=== PATIENT | female | born 1960 | race African-American/Black ===

== ENCOUNTER 2019-02-17 03:45 | Inpatient (IN) | payer SELFPAY ==
[~2019-02-17] VITALS: Ht 165.1 cm; Wt 84.5 kg
[2019-02-17] VITALS (8 sets, daily range): BP systolic 122–141; BP diastolic 55–81
[2019-02-17] MEDS ORDERED: ONDANSETRON HCL 4MG/2ML INJ IV STA (05:48)
[2019-02-17] MEDS ORDERED: MORPHINE SULFATE 4 MG/ML CPJ (NOT FOR IM USE) IV STA (05:48)
[2019-02-17] MEDS ORDERED: SODIUM CHLORIDE 0.9% 1000ML BAG (SEPSIS BOLUS) IV ONE (06:00)
[2019-02-17] MEDS ORDERED: CLINDAMYCIN 600 MG in DEXTROSE 5% WATER 50 ML IV ONE (06:00)
[2019-02-17] MEDS ORDERED: VANCOMYCIN 1 G PREMIX 200 ML IV ONE (06:00)
[2019-02-17] MEDS ORDERED: PIPERACILLIN/TAZ 3.375G PREMIX 50 ML IV ONE (06:00)
[2019-02-17 06:23] LABS: BASOPHILS % 0.7 % (0.0-2.0); EOSINOPHILS % 0.2 % (0.0-5.0); HEMOGLOBIN. 12.3 g/dL (12.0-16.0); LYMPHOCYTES % 16.6 % (20.0-50.0); MEAN CORPUSCULAR HEMOGLOBIN 29.5 pg (28.0-32.0); MEAN CORPUSCULAR VOLUME 86.7 fL (81.0-99.0); MEAN PLATELET VOLUME 9.5 fl (7.4-10.4); MONOCYTES % 5.4 % (2.0-8.0); NEUTROPHILS % 77.1 % (40.0-76.0); PLATELET 399 x1000/uL (130-400); RED BLOOD CELL COUNT 4.15 mill/uL (4.2-5.4); RED CELL DISTRIBUTION WIDTH 12.2 % (11.6-14.6)
[2019-02-17 06:24] LABS: CHLORIDE 99 mEq/L (98-107)
[2019-02-17 06:26] LABS: PROTHROMBIN TIME 10.7 sec (9.6-11.0)
[2019-02-17 06:30] LABS: C REACTIVE PROTEIN QUANT 9.2 mg/L (0.0-3.0)
[2019-02-17] MEDS ORDERED: PIPERACILLIN/TAZOBACTAM 3.375 G in DEXT 5% WATER 100 ML IV ONE (06:30)
[2019-02-17] MEDS ORDERED: CLONIDINE 0.1MG TABLET PO PRN (06:45)
[2019-02-17] MEDS ORDERED: ONDANSETRON HCL 4MG/2ML INJ IV PRN (06:45)
[2019-02-17] MEDS ORDERED: DOCUSATE SODIUM 100MG CAPSULE PO PRN (06:45)
[2019-02-17] MEDS ORDERED: ACETAMINOPHEN 325MG TABLET PO PRN (06:45)
[2019-02-17] MEDS: HYDROCODONE/ACETAMINOPHEN 5/325MG TABLET PO PRN ×4 (07:20→20:18)
[2019-02-17] MEDS: SODIUM CHLORIDE 0.9% 1,000 ML IV SCH (07:20)
[2019-02-17] MEDS ORDERED: DEXTROSE 50% WATER 50ML SYRINGE IV PRN (08:30)
[2019-02-17] MEDS: AMLODIPINE 10MG TABLET PO SCH (09:00)
[2019-02-17] MEDS: BLOOD SUGAR DIAGNOSTIC STRIP TEST SCH ×4 (09:00→20:18)
[2019-02-17] MEDS: INSULIN LISPRO 100 UNITS/ML SUBCUT SCH ×4 (10:26→20:28)
[2019-02-17] MEDS ORDERED: PIPERACILLIN/TAZ 3.375G PREMIX 50 ML IV SCH (13:00)
[2019-02-17] MEDS: PIPERACILLIN/TAZOBACTAM 3.375 G in DEXT 5% WATER 100 ML IV SCH ×2 (14:55→18:26)
[2019-02-17] MEDS: NICOTINE 21MG PATCH TD SCH (16:42)
[2019-02-17] MEDS: ENOXAPARIN 40MG/0.4ML SYR SUBCUT SCH (21:00)
[2019-02-18] VITALS (12 sets, daily range): BP systolic 111–147; BP diastolic 46–73
[2019-02-18] MEDS: HYDROCODONE/ACETAMINOPHEN 5/325MG TABLET PO PRN ×5 (00:10→21:58)
[2019-02-18] MEDS: PIPERACILLIN/TAZOBACTAM 3.375 G in DEXT 5% WATER 100 ML IV SCH ×4 (00:11→18:14)
[2019-02-18] MEDS ORDERED: LIDOCAINE HCL 1% 20ML VIAL (Pyxis) INJ ONE ×2 (07:08→07:32)
[2019-02-18] MEDS ORDERED: BUPIVACAINE HCL/PF 0.5% (5MG/ML) 10ML ONE (07:08)
[2019-02-18] MEDS ORDERED: BACITRACIN 50,000 UNITS/VIAL ONE (07:09)
[2019-02-18] MEDS: INSULIN LISPRO 100 UNITS/ML SUBCUT SCH ×4 (07:23→22:17)
[2019-02-18] MEDS ORDERED: FENTANYL CITRATE/PF 50MCG/ML 2ML VIAL ONE (07:32)
[2019-02-18] MEDS ORDERED: PROPOFOL 200MG/20ML VIAL IV ONE (07:32)
[2019-02-18] MEDS ORDERED: MIDAZOLAM HCL 2 MG/2 ML VIAL ONE (07:32)
[2019-02-18] MEDS ORDERED: ROCURONIUM BROMIDE 10MG/ML VIAL 5ML IV ONE (07:35)
[2019-02-18] MEDS ORDERED: PHENYLEPHRINE HCL 10 MG/ML 1ML (IV VIAL) IV ONE (07:44)
[2019-02-18] MEDS ORDERED: TERBUTALINE SULFATE 1MG/ML VIAL ONE (08:11)
[2019-02-18] MEDS: BLOOD SUGAR DIAGNOSTIC STRIP TEST SCH ×4 (08:14→21:00)
[2019-02-18] MEDS: NICOTINE 21MG PATCH TD SCH (08:16)
[2019-02-18] MEDS: AMLODIPINE 10MG TABLET PO SCH ×2 (08:16→12:47)
[2019-02-18] MEDS ORDERED: SODIUM CHLORIDE 0.9% 10ML VIAL ONE (08:24)
[2019-02-18] MEDS ORDERED: EPHEDRINE SULFATE 50MG/ML VIAL ONE (08:24)
[2019-02-18] MEDS ORDERED: ONDANSETRON HCL 4MG/2ML INJ ONE (08:26)
[2019-02-18] MEDS ORDERED: HYDROMORPHONE HCL/PF 2MG/ML CPJ IV PRN (10:30)
[2019-02-18 10:54] LABS: CHLORIDE 99 mEq/L (98-107)
[2019-02-18] MEDS: MORPHINE SULFATE 2 MG/ML CPJ (NOT FOR IM USE) IV PRN (15:23)
[2019-02-18] MEDS: ENOXAPARIN 40MG/0.4ML SYR SUBCUT SCH (22:03)
[2019-02-19] VITALS (13 sets, daily range): BP systolic 120–147; BP diastolic 35–78
[2019-02-19] MEDS: PIPERACILLIN/TAZOBACTAM 3.375 G in DEXT 5% WATER 100 ML IV SCH ×4 (02:04→18:41)
[2019-02-19] MEDS: HYDROCODONE/ACETAMINOPHEN 5/325MG TABLET PO PRN ×2 (02:06→06:53)
[2019-02-19 07:20] LABS: BASOPHILS % 0.7 % (0.0-2.0); EOSINOPHILS % 0.3 % (0.0-5.0); HEMATOCRIT. 31.8 % (36.0-48.0); HEMOGLOBIN. 10.8 g/dL (12.0-16.0); LYMPHOCYTES % 20.6 % (20.0-50.0); MEAN CORPUSCULAR HEMOGLOBIN 29.5 pg (28.0-32.0); MEAN CORPUSCULAR VOLUME 86.7 fL (81.0-99.0); MEAN PLATELET VOLUME 9.5 fl (7.4-10.4); MONOCYTES % 7.2 % (2.0-8.0); NEUTROPHILS % 71.2 % (40.0-76.0); PLATELET 311 x1000/uL (130-400); RED BLOOD CELL COUNT 3.67 mill/uL (4.2-5.4); RED CELL DISTRIBUTION WIDTH 12.3 % (11.6-14.6)
[2019-02-19 07:38] LABS: CHLORIDE 104 mEq/L (98-107)
[2019-02-19] MEDS: BLOOD SUGAR DIAGNOSTIC STRIP TEST SCH ×4 (07:55→21:33)
[2019-02-19] MEDS: SODIUM CHLORIDE 0.9% 1,000 ML IV SCH (07:59)
[2019-02-19] MEDS: NICOTINE 21MG PATCH TD SCH (08:37)
[2019-02-19] MEDS: INSULIN LISPRO 100 UNITS/ML SUBCUT SCH ×4 (08:38→21:41)
[2019-02-19] MEDS: MORPHINE SULFATE 2 MG/ML CPJ (NOT FOR IM USE) IV PRN ×4 (08:56→21:32)
[2019-02-19] MEDS: AMLODIPINE 10MG TABLET PO SCH (10:42)
[2019-02-19] MEDS: ENOXAPARIN 40MG/0.4ML SYR SUBCUT SCH (21:32)
[2019-02-20] VITALS (8 sets, daily range): BP systolic 115–142; BP diastolic 61–94
[2019-02-20] MEDS: PIPERACILLIN/TAZOBACTAM 3.375 G in DEXT 5% WATER 100 ML IV SCH ×4 (00:29→18:32)
[2019-02-20] MEDS: SODIUM CHLORIDE 0.9% 1,000 ML IV SCH ×2 (00:29→16:22)
[2019-02-20] MEDS: MORPHINE SULFATE 2 MG/ML CPJ (NOT FOR IM USE) IV PRN ×4 (05:04→20:44)
[2019-02-20] MEDS: BLOOD SUGAR DIAGNOSTIC STRIP TEST SCH ×4 (07:30→20:50)
[2019-02-20] MEDS: INSULIN LISPRO 100 UNITS/ML SUBCUT SCH ×4 (08:00→20:50)
[2019-02-20] MEDS: AMLODIPINE 10MG TABLET PO SCH (09:00)
[2019-02-20] MEDS: NICOTINE 21MG PATCH TD SCH (09:35)
[2019-02-20] MEDS: HYDROCODONE/ACETAMINOPHEN 5/325MG TABLET PO PRN ×2 (13:05→22:20)
[2019-02-20] MEDS: ENOXAPARIN 40MG/0.4ML SYR SUBCUT SCH (20:44)
[2019-02-21 02:24] VITALS: BP 139/66
[2019-02-21] MEDS: MORPHINE SULFATE 2 MG/ML CPJ (NOT FOR IM USE) IV PRN ×2 (02:25→09:49)
[2019-02-21] MEDS: PIPERACILLIN/TAZOBACTAM 3.375 G in DEXT 5% WATER 100 ML IV SCH ×2 (04:01→07:12)
[2019-02-21 04:02] VITALS: BP 131/62
[2019-02-21] MEDS: SODIUM CHLORIDE 0.9% 1,000 ML IV SCH (04:02)
[2019-02-21] MEDS: HYDROCODONE/ACETAMINOPHEN 5/325MG TABLET PO PRN ×2 (04:03→12:09)
[2019-02-21 08:00] VITALS: BP 155/75
[2019-02-21] MEDS: INSULIN LISPRO 100 UNITS/ML SUBCUT SCH ×2 (08:00→12:08)
[2019-02-21] MEDS: BLOOD SUGAR DIAGNOSTIC STRIP TEST SCH ×2 (08:22→12:06)
[2019-02-21] MEDS: AMLODIPINE 10MG TABLET PO SCH (09:00)
[2019-02-21] MEDS: NICOTINE 21MG PATCH TD SCH (09:48)
[2019-02-21 11:55] VITALS: BP 135/60
[2019-02-21 12:00] VITALS: BP 120/69
[2019-02-21 12:09] VITALS: BP 129/69
== END 2019-02-21 14:25 | disposition home or self-care (01) | DRG 710 ==
LOC: ER 04:31 → 5EST 05:55 → ENRESERV 07:28
PROVIDERS: ADMIT Hospitalist; ATTEND Hospitalist
PROC: 0Y6P0Z0 Detachment at Right 1st Toe, Complete, Open Approach (ICD-10-PCS; principal; 2019-02-18)
DX: A41.9 Sepsis, unspecified organism (principal); E11.42 Type 2 diabetes mellitus with diabetic polyneuropathy; E11.51 Type 2 diabetes mellitus with diabetic peripheral angiopathy without gangrene; E11.65 Type 2 diabetes mellitus with hyperglycemia; F12.90 Cannabis use, unspecified, uncomplicated; E11.69 Type 2 diabetes mellitus with other specified complication; L97.519 Non-pressure chronic ulcer of other part of right foot with unspecified severity; E11.621 Type 2 diabetes mellitus with foot ulcer; M86.8X7 Other osteomyelitis, ankle and foot; B96.1 Klebsiella pneumoniae [K. pneumoniae] as the cause of diseases classified elsewhere; B95.2 Enterococcus as the cause of diseases classified elsewhere; F17.210 Nicotine dependence, cigarettes, uncomplicated; Z82.49 Family history of ischemic heart disease and other diseases of the circulatory system; Z83.3 Family history of diabetes mellitus; Z88.1 Allergy status to other antibiotic agents; Z71.6 Tobacco abuse counseling; Z91.19 Patient's noncompliance with other medical treatment and regimen
CPT/HCPCS: 36415; 71045; 73630; 73718; 82962; 83036; 83605; 84145; 85651; 86140; 87070; 87075; 87077; 87186; 88305; 88311; 93005; 93923; 93970; 97162; 97535; 99285; J1650; J1815; J2250; J2270; J2370; J2405; J2543; J2704; J3010; J3105; J3370; J3490; J7030; J7060